=== PATIENT | female | born 1995 ===

== ENCOUNTER 2017-04-04 06:30 | Inpatient (IN) | payer MEDICAID ==
[2017-04-04] MEDS ORDERED: Oxytocin 30 UNIT 30 UNITS/500 ML BAG IV PRN (06:54)
--- NOTE | 2017-04-04 06:54 | OBHP ---
Datetime: 04/04/2017 06:50 IP Adm Impression: Term, intrauterine ; Ruptured Membranes IP Admit Plan: Admit to unit; Initiate labor protocol Admit Comment, IP Provider: chief complaint-leaking of fluid HPI 21 y/o at 38.6 wga with c/o lekaing of fluid since 5 am.patient deneis nausea, vomiting, headache, chest pain, shorthnes sof breath cours ecompliacted by chlamydia in july 2016.limted records available from [facility] and not oc available PMH denies PSH denies OBGYN HX Social hx denies tobacco,alcohol or illicit drug us eExam see exam section A/P 21 y/o at 38.6 wga with srom.early labor.gbs unknown -admit -start carlos manuel -get recorsd from clinic -start pitocin -monitor closely Pelvic Type - PN: Adequate Extremities - PN: Normal Abdomen - PN: Normal Back - PN: Normal Lungs - PN: Normal Heart - PN: Normal Neurologic - PN: Normal General - PN: Normal Weight - Estimated: 3200 Presentation-Admit: Vertex Membranes, Provider: Ruptured Contraction Comments Provider: every 2-3min Gestation - Est Wks by US: 38.6 Pool Provider: Positive Nitrazine Provider: Positive Ferning Provider: Positive IP Hx Assessment: The History has been Reviewed and is Current EGA AdmitDate IP: 38.6 Vital Signs Provider: Reviewed; Within Normal Limits IP Chief Complaint: Suspected ruptured membranes FHR Category Provider Fetus A: Category I Dilatation, Provider: 3-4 Effacement, Provider: 80 Station, Provider: -2 Genitourinary Exam: Normal DTRs - PN: Normal
[2017-04-04 06:58] VITALS: BMI 28.5
[2017-04-04] MEDS ORDERED: Lactated Ringer's 1,000 ML IV SCH (07:00)
[2017-04-04] MEDS ORDERED: Oxytocin 30 UNIT 30 UNITS/500 ML BAG IV ONE (07:25)
[2017-04-04] MEDS ORDERED: Penicillin G 5 Million Unit Vial IVPB ONE (07:30)
[2017-04-04 08:07] LABS: BASO % 0.2 % (0.0-2.0); EOS # 0.1 K/uL (0.0-0.7); EOS % 1.2 % (0.0-4.0); HEMATOCRIT 33.8 % (34.0-47.0); LYMPH # 1.9 K/uL (1.0-4.3); MEAN CELL VOLUME 85.5 fL (81.0-99.0); MEAN CORPUSCULAR HEMOGLOBIN 29.5 pg (27.0-31.0); MEAN CORPUSCULAR HGB CONC 34.5 g/dL (33.0-37.0); MEAN PLATELET VOLUME 8.3 fL (7.2-11.7); MONO # 1.2 K/uL (0.0-0.8); MONO % 11.2 % (0.0-10.0); RED CELL DISTRIBUTION WIDTH 13.1 % (11.5-14.5); WHITE BLOOD COUNT 10.4 K/uL (4.8-10.8)
[2017-04-04] MEDS ORDERED: Bupivacaine 0.125%/FentaNYL 200 ML EPI ONE (08:19)
[2017-04-04 08:26] LABS: ALKALINE PHOSPHATASE 124 U/L (38-126); ALT/SGPT 33 U/L (9-52); AST/SGOT 19 U/L (14-36); BILIRUBIN,TOTAL 0.4 mg/dL (0.2-1.3); BLOOD UREA NITROGEN 4 mg/dL (7-17); CALCIUM 8.1 mg/dl (8.6-10.4); CARBON DIOXIDE 22 mmol/L (22-30); CHLORIDE 106 mmol/L (98-107); GFR AFRICAN-AMERICAN > 60; GLUCOSE,RANDOM 85 mg/dL (65-105); POTASSIUM 3.5 mmol/L (3.6-5.2); SODIUM 137 mmol/L (132-148); TOTAL PROTEIN 6.4 g/dL (6.3-8.3)
[2017-04-04 08:32] LABS: ALB/GLOB RATIO 1.1 (1.0-2.1)
[2017-04-04 08:52] LABS: URINE BILIRUBIN NEGATIVE (NEGATIVE); URINE BLOOD NEGATIVE (NEGATIVE); URINE COLOR Straw (YELLOW); URINE GLUCOSE (UA) NORMAL (Normal); URINE KETONE NEGATIVE (NEGATIVE); URINE LEUKOCYTE ESTERASE TRACE Leu/uL (Negative); URINE PROTEIN NEGATIVE (NEGATIVE); URINE UROBILINOGEN NORMAL mg/dL (0.2-1.0)
[2017-04-04 09:12] LABS: RBC URINE 2 /hpf (0-3)
[2017-04-04 09:13] LABS: WBC URINE 2 /hpf (0-5)
[2017-04-04] MEDS ORDERED: Penicillin G Potassium 2.5 MU in Dextrose 5% In Water 50 ML IVPB SCH (11:30)
--- NOTE | 2017-04-04 13:33 | OBDS ---
DELIVERY PERSONNEL Delivery Doctor: Opal Thomason MD Carpentry Specialist: Amy Love RN Anesthesiologist: Jennifer Resident: Boni [place] MATERNAL INFORMATION Delivery Anesthesia: Epidural Medications in Delivery: 0 Placenta Cultured: No Maternal Complications: None Provider Comments: baby deliverd in reji. end clean 9/9 no com LABOR SUMMARY EDC: 04/12/2017 00:00 No. Babies in Womb: 1 Attempted: No Labor Anesthesia: Epidural LABOR INFORMATION Reason for Induction: Other Reason for Induction Other: srom Onset of Labor: 04/04/2017 08:00 Oxytocin: Augmentation Group B Beta Strep: Not Done Antibiotics # of Doses: 2 Antibiotics Time of Last Dose: 1130 Steroids Given: None Reason Steroids Not Administered: Not Applicable MEMBRANES Membranes Rupture Method: Spontaneous Rupture of Membranes: 04/04/2017 05:45 Amniotic Fluid Color: Clear Amniotic Fluid Amount: Moderate Amniotic Fluid Odor: None VAGINAL DELIVERY Episiotomy: None Laceration Extension: N/A Laceration Type: Periurethral Laceration Repair Note: repared with 3 chromic Sponge Count Correct: Yes Sharps Count Correct: Yes BABY A INFORMATION Born in Route : No : N/A Forceps: N/A Vacuum Extraction: N/A PRESENTATION/POSITION BABY A Presentation: Cephalic Cephalic Presentation: Vertex Vertex Position: Left Occipital Anterior PLACENTA INFORMATION BABY A Placenta Method of Delivery: Spontaneous Placenta Status: Delivered INFANT INFORMATION BABY A Gestational Age at Delivery: 38.6 Gestational Status: Term IDENTIFICATION/MEDS BABY A ID Band Number: [id number] Sensor Number: [id number] Sensor Location : Cord Clamp CORD INFORMATION BABY A Infant Suction: Mouth
[2017-04-04] MEDS ORDERED: Benzocaine/Menthol 20%-0.5% Topical Spray (60 ml) TOP PRN (13:56)
[2017-04-04] MEDS ORDERED: Oxycodone/Acetaminophen 5/325 mg Tab PO PRN (14:00)
[2017-04-05 07:53] LABS: BASO % 0.2 % (0.0-2.0); EOS # 0.1 K/uL (0.0-0.7); EOS % 1.1 % (0.0-4.0); HEMATOCRIT 31.4 % (34.0-47.0); LYMPH # 2.2 K/uL (1.0-4.3); LYMPH % 15.9 % (20.0-40.0); MEAN CELL VOLUME 86.3 fL (81.0-99.0); MEAN CORPUSCULAR HEMOGLOBIN 28.9 pg (27.0-31.0); MEAN CORPUSCULAR HGB CONC 33.5 g/dL (33.0-37.0); MEAN PLATELET VOLUME 8.3 fL (7.2-11.7); MONO # 1.3 K/uL (0.0-0.8); MONO % 9.3 % (0.0-10.0); RED CELL DISTRIBUTION WIDTH 13.5 % (11.5-14.5); WHITE BLOOD COUNT 13.6 K/uL (4.8-10.8)
--- NOTE | 2017-04-05 11:51 | OBPPN ---
Datetime: 04/05/2017 11:27 PP Pain Prov: Within normal limits PP Nausea Prov: Denies PP Flatus Prov: Yes PP BM Prov: No PP Breasts Prov: Normal PP Heart Prov: Normal PP Lungs Prov: Normal PP Abdomen/Uterus Prov: Normal PP Lochia Prov: Normal PP Vulva/Perineum Prov: Normal PP CVA Tenderness Prov: Normal PP Extremities Prov: Normal PP C/S Incision Prov: Not Applicable PP Progress Prov: Normal PP Comments Phys Exam Prov: Breasts: no cracked nipples Abdomen: Soft. Non distended, non tender, Fundus firm, mobile, 18 weeks, mild lochia rubra. All other systems reviewed and are negative PP Impression Prov: Normal progression PP Plan Prov: Continue present management PP Progress Note Prov: Patient received in bed, room 459; exclusively. Reports mildy s ore nipples. Denies nausea, vomiting; ambulating and voiding without difficulty. P.E: as above. WD in NAD. Awake, alert, oriented to time, person and place. Pelasant and coopera tive - PPD#1 H/H 10.5/31.4. Rh (-); also Rh(-) Assessment: PPD#1, 21 y.o. P1, S/P , Afebrile, vital signs stable. Breast care with breast mi lk was discussed. Clinically stable. Plan: 1) Continue present management 2) Anticpate discharge home 04/06/17 Vital Signs Provider PP: Reviewed
[2017-04-05 16:17] VITALS: O2SAT 100
[2017-04-06] MEDS ORDERED: Influenza Vaccine 60 mcg/0.5 mL SYR (4YR UP) IM ONE (11:30)
--- NOTE | 2017-04-06 13:21 | OBPPN ---
Datetime: 04/06/2017 08:36 PP Pain Prov: Within normal limits PP Nausea Prov: Denies PP Flatus Prov: Yes PP BM Prov: Yes PP Heart Prov: Normal PP Lungs Prov: Normal PP Abdomen/Uterus Prov: Normal PP Lochia Prov: Normal PP Extremities Prov: Normal PP Progress Prov: Normal PP Impression Prov: Normal progression PP Plan Prov: Continue present management; Discharge PP Progress Note Prov: Patient seen and examined at bedside. Per nursing no acute events overnight. Patient is doing well, pain is controlled. Lochia is mild. Ambulating and tolerating diet. Passing fl atus and BM. Urinating without difficulty. Breast and bottle feeding. Denies headache, dizziness, cp, palpitations, sob, urinary symptoms. VS: 114/70 88 98.2 Gen: AAOx3 CV: RRR Lungs: CTA B/L Abd: Soft, fundus firm below umbilicus Ext: No clubbing, cyanosis, edema; no calf tenderness Labs: 10.4>11.7/33.8<302 13.6>10.5/31.4<263 A negative Rubella immune A/P: 21 year old at 38w6d s/p PPD#2 -Stable, afebrile -Pain control - motrin prn -Encourage ambulation and hydration -Encourage breast feeding -Rh negative, baby Rh negative, no rhogam needed -Continue routine care -D/C home today: pelvic rest x 6 weeks, f/u with clinic in 6 weeks -Discussed plan with attending Felicia Thompson DO PGY-1 Patiente shraddha,agree with resident exam, assessment and plan IP PP Procedures: None Vital Signs Provider PP: Reviewed; Within Normal Limits
--- NOTE | 2017-04-06 13:21 | OBDCSUM ---
Datetime: 04/06/2017 10:56 Discharged to, Provider: Home Follow up at, Provider: [facility] Disch Instr Activity: Normal activity Disch Instr Diet: Regular Discharge Diet restrict Prov: none Discharge Instructions, Provider: Routine instructions given Discharge Diagnosis, Provider: Term Delivered Discharge Time: 04/06/2017 11:30 Follow up in weeks, Provider: May 16, 2017 Disch Referrals: None Disch Activity Restrictions: No exercising; No lifting; No driving; Minimize walking; Minimize stair -climbing; No sexual activity; Nothing in vagina - [place], tampons, douche Discharge Comment, Provider: go to er if you have fever, pain, severe pain, heavy bleeding or any ot her problems Discharge Diagnosis Prov Other: s/p vaginal delivery Datetime: 04/05/2017 11:47 Discharged to, Provider: Home Follow up at, Provider: Clinic Disch Instr Activity: Normal activity Disch Instr Diet: Regular Discharge Instructions, Provider: Routine instructions given Discharge Time: 04/06/2017 10:00 Follow up in weeks, Provider: 6 weeks Disch Referrals: None Contraception discussed, Prov: Yes Disch Activity Restrictions: No sexual activity; Nothing in vagina - [place], tampons, douche Discharge Comment, Provider: Pelvic rest x 6 weeks F/U with clinic in 6 weeks for visit Desires [place] for control
[2017-04-06 19:11] VITALS: BP 113/72; PULSE 72; RESP 18; TEMP 97.8
== END 2017-04-06 14:45 | disposition home or self-care (01) | DRG 373 ==
LOC: C.EROB 06:30 → C.4D 06:57 → C.4M 15:05
PROVIDERS: ADMIT Student in an Organized Health Care Education/Training Program; ATTEND Student in an Organized Health Care Education/Training Program
PROC: 10E0XZZ Delivery of Products of Conception, External Approach (ICD-10-PCS; principal; 2017-04-04)
PROC: 0W8NXZZ Division of Female Perineum, External Approach (ICD-10-PCS; 2017-04-04)
DX: O80 Encounter for full-term uncomplicated delivery (principal); Z37.0 Single live birth; Z3A.38 38 weeks gestation of pregnancy

== ENCOUNTER 2017-10-17 14:28 | Emergency (ER) | payer SELFPAY ==
[2017-10-17 14:29] VITALS: BMI 28.5
[2017-10-17 14:34] VITALS: O2SAT 100
[2017-10-17 15:27] LABS: SQUAMOUS EPITHIAL 9 /hpf (0-5); URINE BACTERIA RARE (<OCC); URINE BILIRUBIN NEGATIVE (NEGATIVE); URINE BLOOD NEGATIVE (NEGATIVE); URINE CLARITY Hazy (Clear); URINE COLOR Yellow (YELLOW); URINE GLUCOSE (UA) NORMAL (Normal); URINE LEUKOCYTE ESTERASE 2+ Leu/uL (Negative); URINE PROTEIN NEGATIVE (NEGATIVE); URINE UROBILINOGEN NORMAL mg/dL (0.2-1.0)
--- NOTE | 2017-10-17 16:17 | C.PDOC ---
History Of Present Illness 22 y/o female c/o several week hx of suprapubic pain, with frequent urination and pressure; pain now radiating to right flank, no fever or chills. no back pain. pt with occasional nausea and lightheadedness since yesterday. vomited one time yesterday. no diarrhea. last bm today, normal. denies vaginal bleeding and vaginal discharge. lmp end august 2017 Time Seen by Provider: 10/17/17 14:59 Chief Complaint (Nursing): Abdominal Pain History Per: Patient History/Exam Limitations: no limitations Onset/Duration Of Symptoms: Days (30) Current Symptoms Are (Timing): Still Present Severity: Moderate Location Of Pain/Discomfort: Suprapubic, Other (right flank) Radiation Of Pain To:: Flank Quality Of Discomfort: Pressure, "Pain" Associated Symptoms: Nausea, Vomiting (x 1). denies: Fever, Chills, Chest Pain Abnormal Vaginal Bleeding: No Past Medical History Reviewed: Historical Data, Nursing Documentation, Vital Signs Vital Signs: Last Vital Signs Temp 98.7 F 10/17/17 18:02 Pulse 59 L 10/17/17 18:02 Resp 18 10/17/17 18:02 BP 105/63 10/17/17 18:02 Pulse Ox 100 10/18/17 11:05 - Medical History PMH: No Chronic Diseases Denies: Depression, Diabetes, HTN - [facility] DELIVERY OF PRODUCTS OF CONCEPTION, EXTERNAL APPROACH (04/04/17) DIVISION OF FEMALE PERINEUM, EXTERNAL APPROACH (04/04/17) Family History: States: Unknown Family Hx - Social History Hx Alcohol Use: No Hx Substance Use: No - Immunization History Hx Tetanus Toxoid Vaccination: No Hx Influenza Vaccination: Yes Hx Pneumococcal Vaccination: No Review Of Systems Constitutional: Negative for: Fever, Chills Cardiovascular: Negative for: Chest Pain Respiratory: Negative for: Cough, Shortness of Breath Gastrointestinal: Positive for: Abdominal Pain. Negative for: Nausea, Vomiting Genitourinary: Positive for: Dysuria. Negative for: Vaginal Discharge, Vaginal Bleeding Musculoskeletal: Positive for: Other (right flank pain). Negative for: Back Pain Skin: Negative for: Rash Neurological: Negative for: Weakness, Numbness Physical Exam - Physical Exam Appears: Non-toxic, No Acute Distress Skin: Warm, Dry Head: Atraumatic, Normacephalic Oral Mucosa: Moist Neck: Supple Cardiovascular: Rhythm Regular, No Murmur Respiratory: No Decreased Breath Sounds, No Wheezing Gastrointestinal/Abdominal: Bowel Sounds, Soft, Tenderness (suprapubic and right flank mild), No Distention, No Guarding, No Rebound Back: CVA Tenderness (mild right side) Neurological/Psych: Oriented x3, Normal Speech, Normal Cognition ED Course And Treatment - Laboratory Results Result Diagrams: 10/17/17 16:32 10/17/17 16:32 O2 Sat by Pulse Oximetry: 100 Medical Decision Making Medical Decision Making: pt with urinary symptoms x 1 month. now with pain going to flank. no elevated wbc, ua with +le and wbc. will tx for early pyelo Disposition Counseled Patient/Family Regarding: Studies Performed, Diagnosis, Need For Followup, Rx Given - Disposition Referrals: [facility] [Outside] Disposition: HOME/ ROUTINE Disposition Time: 18:00 Condition: GOOD Additional Instructions: Please drink increased fluids; take all antibiotics as prescribed. Please follow up in medical clinic. Return to ER for any worse symptoms such as worse pain. fever. vomiting or any other concerns. Prescriptions: Ciprofloxacin [Cipro] 500 mg PO BID #20 tab Instructions: Urinary Tract Infection, Adult (DC) Forms: General Discharge Instructions, [facility] ([place]), School Excuse - Clinical Impression Clinical Impression: Urinary tract infection
[2017-10-17] MEDS ORDERED: Sodium Chloride 0.9% 1,000 ML IV ONE (16:21)
[2017-10-17] MEDS ORDERED: Sodium Chloride 0.9% 1,000 ML ONE (16:34)
[2017-10-17 16:42] LABS: BASO % 0.3 % (0.0-2.0); EOS # 0.1 K/uL (0.0-0.7); EOS % 1.6 % (0.0-4.0); LYMPH # 2.3 K/uL (1.0-4.3); LYMPH % 29.7 % (20.0-40.0); MEAN CORPUSCULAR HEMOGLOBIN 28.4 pg (27.0-31.0); MEAN CORPUSCULAR HGB CONC 33.8 g/dL (33.0-37.0); MEAN PLATELET VOLUME 9.5 fL (7.2-11.7); MONO # 0.6 K/uL (0.0-0.8); MONO % 8.4 % (0.0-10.0); NEUT # 4.7 K/uL (1.8-7.0); NRBC % 0.1 % (0.0-2.0); RBC 4.42 Mil/uL (3.80-5.20); RED CELL DISTRIBUTION WIDTH 12.8 % (11.5-14.5); WHITE BLOOD COUNT 7.8 K/uL (4.8-10.8)
[2017-10-17 16:43] LABS: HEMOGLOBIN 12.6 g/dL (11.0-16.0); MEAN CELL VOLUME 83.9 fL (81.0-99.0)
[2017-10-17 16:52] LABS: ALB/GLOB RATIO 1.2 (1.0-2.1); ALBUMIN 4.1 g/dL (3.5-5.0); CALCIUM 8.8 mg/dl (8.6-10.4); GFR AFRICAN-AMERICAN > 60; GFR NON-AFRICAN AMERICAN > 60
[2017-10-17 17:02] LABS: ALT/SGPT 50 U/L (9-52); AST/SGOT 39 U/L (14-36); BLOOD UREA NITROGEN 7 mg/dL (7-17)
[2017-10-17 18:02] VITALS: BP 105/63; PULSE 59; RESP 18; TEMP 98.7
== END 2017-10-17 18:21 | disposition home or self-care (01) ==
LOC: C.ER 14:28
DX: N39.0 Urinary tract infection, site not specified (principal)
CPT/HCPCS: 80053; 81001; 85025; 87086; 96360; 99285; J7030